=== PATIENT | male | born 1955 | race Caucasian/White ===

== ENCOUNTER → 2021-10-15 | Outpatient (CLI) | payer OTHER ==
[~2021-10-15] MED LIST: IBUPROFEN400 MG PO; MULTIVITAMINS1 EAC1 PO; NORCO 5-325 TA1 EACH PO
== END ==
LOC: KOH-I 09:43
DX: R07.9 Chest pain, unspecified (principal); J90 Pleural effusion, not elsewhere classified
CPT/HCPCS: 71046